=== PATIENT | female | born 1990 | race Caucasian/White ===

== ENCOUNTER 2017-01-04 15:19 | Inpatient (IN) ==
--- NOTE | 2017-01-04 10:55 | OB/GYN Progress Note ---
Date of Encounter: 01/04/17 Time of Encounter: 10:53 Objective - Vital Signs Vital Signs: Intake and Output 01/03/17 01/04/17 01/04/17 23:59 07:59 15:59 Other: Weight 102.7 kg Patient Weight 01/04/17 23:59 Weight 102.7 kg
--- NOTE | 2017-01-04 14:10 | OB/GYN History & Physical ---
Date of Encounter: 01/04/17 Time of Encounter: 14:04 Assessment and Plan (1) 38 weeks gestation of Current visit: Yes Status: Acute (2) Uterine contractions during Current visit: Yes Status: Acute Pt has made cervical change from 3-4cm. Admit to labor and delivery Nubain as desired May have epidural if continues to make cervical change. Anticipate History of Present Illness Chief complaint: Contractions HPI: Ms. Cook is a 26 year old female with complaints of contractions since 4am this morning. Reports good movement, denies vaginal bleeding or leaking of fluid. Pt states did have low fluid during 12/24 US shows KERWIN of 7 with small head measurement. Pt states she has a history of rapid labor. Labs: A+, Rubella Immune, GBS and serologies negative Past Med Surg Social Fam HX - Past Medical History Medical history: no medical history Psychiatric history: no psych history - Past Surgical History Surgical History: no surgical history - Social History Smoking Status: Former smoker Smokeless Tobacco Status: No Alcohol use: none Drug use: none - Family History Mother Hx Family Cardiac Disorders: Yes (HTN) Obstetrical History - Pregnancies : 3 Para: 2 Term: 2 : 0 Ab's: 0 Livin Medications and Allergies Vyf086/FA/Omega3/Dha/Fish Oil [ Gummies] 1 tab PO DAILY 01/04/17 [ History] Propranolol HCl [Innopran Xl] 1 tab PO DAILY 01/04/17 [History] Allergies No Known Allergies Allergy (Verified 01/04/17 10:51) Exam - Constitutional Constitutional: well developed, well nourished, no acute distress - Neck Neck exam: full ROM - Lungs Respiratory exam: CTAB - Cardiovascular Cardiovascular exam: RRR, +S1, +S2 - Abdomen Abdomen: Present: bowel sounds normal, gravid, non tender - Extremities Extremities exam: normal capillary refill, normal inspection - Vagina Vagina: Present: normal moisture - Cervix Dilation: 4 (BBOW) Effacement: 75 Station: -2 - Uterus Uterus exam: Present: normal size, normal contour - Adnexa Adnexa: bilateral: normal Results All other labs normal. - VTE Reasons for not Prescribing Prophylaxis: Treatment not Indicated - Low risk for VTE
--- NOTE | 2017-01-04 14:30 | Anesthesia Evaluation PreOp ---
Date of Encounter: 01/04/17 Time of Encounter: 14:28 - Past History Planned Operation: vaginal del, , Cardiac History: Denies any Significant Hx Pulmonary History: Denies Any Significant HX BOOTH CLEANER History: Other (chronic migraines, tx with propanolol.) Other Medical History: Other (chronic back pain, no radiculopathy.) Anesthesia History: No Prior Anesthetic Complications, Past Anesthesia ( previous epidural (not in time, didnt work, Hx of fast labor), no family Hx of problems) Alcohol Use: none Drug use: none Medications and Allergies Hex656/FA/Omega3/Dha/Fish Oil [ Gummies] 1 tab PO DAILY 01/04/17 [ History] Propranolol HCl [Innopran Xl] 1 tab PO DAILY 01/04/17 [History] Allergies No Known Allergies Allergy (Verified 01/04/17 10:51) Anesthesia Exam - HEENT Pupil (Motor): Pupils equal Mallampati: III Teeth: Normal Oral Opening: Greater than 3 - BOOTH CLEANER LOC: Oriented BOOTH CLEANER Motor: Normal RUE, Normal LUE, Normal RLE, Normal LLE, Normal Face BOOTH CLEANER Sensory: Normal: RUE, LUE, RLE, LLE, Face - Cardiac Rhythm: Regular Murmur: None - Pulmonary Breath Sounds: bilateral Clear Respiratory Effort: Symmetrical Anesthesia Assess/Plan ASA Score: 2 Modified [place] Scale for Level of Consciousness: Cooperative, oriented, and tranquil Anesthetic Plan: General, Regional Monitoring Plan: Standard Monitors Recovery Plan: PACU
[~2017-01-04 15:19] MED LIST: *HR* Nalbuphine 20 MG/ML AMPUL IVP PRN; Famotidine 20 MG/2 ML VIAL IVP PRN; Naloxone 0.4 MG/ML INJ IVP PRN; Ringers Solution, Lactated 1,000 ML IVC SCH
[2017-01-04] MEDS ORDERED: Oxytocin 20 units/ LR 1000 mL 20 UNIT/1,000 ML BAG IVC ONE (15:21)
[2017-01-04] MEDS ORDERED: Lidocaine 1% 20 ML MDV ONE (15:33)
[2017-01-04 15:42] LABS: Basophils % 0.3 %; Eosinophils # 0.1 K/mcL (0.0-0.6); Eosinophils % 0.5 %; Hematocrit 39.1 % (35.3-44.9); Hemoglobin 13.1 g/dL (11.5-15.4); Immature Granulocytes % 0.3 % (0-4); Lymphocytes # 1.7 K/mcL (0.6-4.6); Mean Corpuscular HGB Conc 33.5 g/dL (31.6-35.5); Mean Corpuscular Hemoglobin 31.2 pg (28.0-33.3); Mean Corpuscular Volume 93.1 fL (83.0-100.0); Mean Platelet Volume 12.4 fL (9.4-12.4); Monocytes # 0.5 K/mcL (0.0-1.3); Monocytes % 4.3 %; Neutrophils # 9.2 K/mcL (1.6-8.9); Platelet Count 212 K/mcL (140-400); Red Cell Distribution Width 14.4 % (11.5-14.5); Segmented Neutrophils % 79.6 %
--- NOTE | 2017-01-04 16:11 | OB/GYN Procedure Note ---
Delivery - Delivery Date: 01/04/17 Provider: Donna Cook Intrapartum events: meconium Delivery induction: none Delivery monitor: external FHT, external uterine Anesthesia: local Estimated Blood Loss: 200 - Infant (s) Infant A Delivery Date: 01/04/17 Infant Delivery Time: 15:27 Presentation: vertex Position: MARCELLE Route of delivery: Gender: Female Viability: Viable Pounds: 5 Ounces: 9 Weight Gram: 2510 kg at 1 minute: 8 at 5 mins: 9 Shoulder Dystocia: not encountered Placenta: spontaneous Cord: 3 umbilical vessels - Repair Episiotomy: none Laceration Description: Perineal - 2nd Degree - Complications Delivery complications: meconium - Disposition Mom disposition: stable in LDR [place] disposition: stable in LDR - Comments Comments: Pt progressed quickly to complete.SROM for meconium stained fluid. Maternal bearing down efforts to of liveborn girl. Vertex delivered MARCELLE, shoulders and body easily followed, no shoulder dystocia encountered. Nuchal encountered delivered through cord. Vigorous infant placed on maternal abdomen, Apgars 8, 9 Placenta delivered spontaneously, complete and intact with fundus firm, Pitocin per policy. Second-degree perineal laceration repaired in the normal fashion with 3-0 Vicryl. EBL 200, all sponge and needle counts correct
[2017-01-04] MEDS ORDERED: Lanolin 28 GM TUBE TP PRN (18:12)
[2017-01-04] MEDS ORDERED: Oxytocin 20 units/ LR 1000 mL 20 UNIT/1,000 ML BAG IVC SCH (18:12)
[2017-01-04] MEDS ORDERED: Benzocaine/Menthol 56 GM AEROSOL SPRAY TP PRN (18:12)
[2017-01-04] MEDS ORDERED: Acetaminophen 325 MG TABLET PO PRN (18:12)
[2017-01-04] MEDS: Ibuprofen 600 MG TABLET PO PRN (18:51)
[2017-01-05 06:03] LABS: Basophils % 0.3 %; Eosinophils # 0.1 K/mcL (0.0-0.6); Eosinophils % 0.8 %; Hematocrit 37.8 % (35.3-44.9); Hemoglobin 12.6 g/dL (11.5-15.4); Immature Granulocytes % 0.5 % (0-4); Lymphocytes # 2.2 K/mcL (0.6-4.6); Lymphocytes % 17.9 %; Mean Corpuscular HGB Conc 33.3 g/dL (31.6-35.5); Mean Corpuscular Hemoglobin 30.7 pg (28.0-33.3); Mean Platelet Volume 11.4 fL (9.4-12.4); Monocytes # 0.9 K/mcL (0.0-1.3); Monocytes % 7.3 %; Neutrophils # 8.8 K/mcL (1.6-8.9); Platelet Count 190 K/mcL (140-400); Red Blood Count 4.11 M/mcL (3.82-4.97); Red Cell Distribution Width 14.2 % (11.5-14.5); Segmented Neutrophils % 73.2 %
[2017-01-05 08:25] VITALS: BP 109/73
[2017-01-05] MEDS ORDERED: Prenatal Vit/FA 1 EACH TABLET PO SCH (09:00)
[2017-01-05] MEDS: Ibuprofen 600 MG TABLET PO PRN (09:49)
--- NOTE | 2017-01-05 10:05 | Discharge Summary ---
Date of Encounter: 01/05/17 Time of Encounter: 10:04 - Discharge Diagnosis (1) Status post vaginal delivery Priority: Primary Status: Acute Comments: patient doing well PPD#2, ok for discharge - Discharge Medications Home Medications: Uow684/FA/Omega3/Dha/Fish Oil [ Gummies] 1 tab PO DAILY 01/04/17 [ History] Propranolol HCl [Innopran Xl] 1 tab PO DAILY 01/04/17 [History] Allergies/Adverse Reactions: Allergies No Known Allergies Allergy (Verified 01/04/17 10:51) Data Procedures and tests throughout hospitalization: Laboratory Tests 01/04/17 01/05/17 14:25 05:42 WBC 11.6 H 12.0 H RBC 4.20 4.11 Hgb 13.1 12.6 Hct 39.1 37.8 MCV 93.1 92.0 MCH 31.2 30.7 MCHC 33.5 33.3 RDW 14.4 14.2 Plt Count 212 190 MPV 12.4 11.4 Immature Gran % 0.3 0.5 Seg Neutrophils % 79.6 73.2 Lymphocytes % 15.0 17.9 Monocytes % 4.3 7.3 Eosinophils % 0.5 0.8 Basophils % 0.3 0.3 Neutrophils # 9.2 H 8.8 Lymphocytes # 1.7 2.2 Monocytes # 0.5 0.9 Eosinophils # 0.1 0.1 Basophils # 0.0 0.0 Labs on day of discharge: Labs from last 24 hours 01/05/17 01/04/17 05:42 14:25 WBC 12.0 H 11.6 H RBC 4.11 4.20 Hgb 12.6 13.1 Hct 37.8 39.1 MCV 92.0 93.1 MCH 30.7 31.2 MCHC 33.3 33.5 RDW 14.2 14.4 Plt Count 190 212 MPV 11.4 12.4 Immature Gran % 0.5 0.3 Seg Neutrophils % 73.2 79.6 Lymphocytes % 17.9 15.0 Monocytes % 7.3 4.3 Eosinophils % 0.8 0.5 Basophils % 0.3 0.3 Neutrophils # 8.8 9.2 H Lymphocytes # 2.2 1.7 Monocytes # 0.9 0.5 Eosinophils # 0.1 0.1 Basophils # 0.0 0.0 Date of admission: 01/04/17 15:52 Primary care physician: Mohsen Garcias Consults: 01/04/17 18:12 Consult to Financial Services Auditor [CONS] Routine Comment: Vaginal delivery, consult needed - Patient Status Disposition: Home, Self-Care Condition: Good Functional capacity at discharge: independent ambulation - Discharge Instructions Follow Up With: Carlos Garcias DO [Primary Care Provider] - Hospital Course ZONING ADMINISTRATOR Time Attestation: Total time spent providing and/or coordinating discharge services: Exam - Constitutional Vitals: Temp Pulse Resp BP Pulse Ox 97.6 F 75 16 109/73 97 01/05/17 07:30 01/05/17 07:30 01/05/17 07:30 01/05/17 07:30 01/05/17 04:50 General appearance IM: A&O X 3 - Respiratory Respiratory exam: Present: CTAB - Cardiovascular Cardiovascular exam IM: Present: RRR - GI/Abdominal GI/Abdominal exam IM: normal bowel sounds - Neurological Exam Neurological exam: alert - VTE Reasons for not Prescribing Prophylaxis: Treatment not Indicated - Low risk for VTE
== END 2017-01-05 18:00 | disposition home or self-care (01) | DRG 560 ==
LOC: 1NENULAB → 1NENUOBS 18:08
PROVIDERS: ADMIT Obstetrics & Gynecology; ATTEND Obstetrics & Gynecology

== ENCOUNTER 2018-01-06 14:03 | Observation (INO) ==
[2018-01-06 15:05] LABS: Amphetamine Screen,Urine Negative ng/mL (Cutoff=1000); Barbiturate Screen,Urine Negative ng/mL (Cutoff=200); Benzodiazepines Screen,Urine Negative ng/mL (Cutoff=200); Cannabinoid Screen,Urine Negative ng/mL (Cutoff = 50); Cocaine Screen,Urine Negative ng/mL (Cutoff= 300); Opiate Screen,Urine Negative ng/mL (Cutoff=300); Phencyclidine Screen,Urine Negative ng/mL (Cutoff=25)
--- NOTE | 2018-01-06 18:27 | OB/GYN Progress Note ---
Date of Encounter: 01/06/18 Time of Encounter: 18:20 - Assessment and Plan (1) and not yet delivered in third trimester Current Visit: Yes Status: Acute (2) False labor after 37 weeks of gestation without delivery Current Visit: Yes Status: Acute Labor precautions given she will follow up in the office her back on labor and delivery if contractions are 5-7 minutes apart that she cannot walk or talk to (3) 38 weeks gestation of Current Visit: No Status: Acute Subjective - Subjective Interval history: Patient is a 27-year-old 4 para 3 at 38-4/7 weeks who presented today complaining of contractions every 7-10 minutes apart. Patient has a history of rapid labors when she gets to 4-5 cm, she lives approximately 45 minutes from the hospital was concerned so came in to be evaluated. On admission patient was taken to 3 cm was observed for couple hours and made no significant change we did assess the patient felt that she might be close to 3 cm her contractions were still very irregular and head was ballotable we had the patient ambulate for an hour then we placed a back on the monitor contractions remained approximately 5-10 minutes apart irregular and she had made no additional cervical change with the head still being ballotable patient was advised that because she is in the 38 weeks range we really cannot do anything to help her needs to be in the 39 week range for that patient will be discharged home with labor precautions she has an appointment in 2 days which she will keep. She denies any leaking of fluid and is still having good movement. Antepartum ROS: contractions Objective - Vital Signs Vital Signs: Intake and Output 01/06/18 01/06/18 01/06/18 07:59 15:59 23:59 Other: Weight 99.79 kg Patient Weight 01/06/18 23:59 Weight 99.79 kg - Exam FHR: category 1 FHR comments: heart tones 140s reactive contractions irregular every 5-7 minutes Abdomen: Present: normal appearance, soft, gravid Uterus: Present: normal, firm Cervical dilation: 3 Cervix effacement: 80 station: ballotable
== END 2018-01-06 18:30 | disposition home or self-care (01) ==
LOC: 1NENULAB
PROVIDERS: ADMIT Obstetrics & Gynecology; ATTEND Obstetrics & Gynecology

== ENCOUNTER 2018-01-10 23:29 | Inpatient (IN) ==
[2018-01-10 19:50] LABS: Amphetamine Screen,Urine Negative ng/mL (Cutoff=1000); Barbiturate Screen,Urine Negative ng/mL (Cutoff=200); Benzodiazepines Screen,Urine Negative ng/mL (Cutoff=200); Cannabinoid Screen,Urine Negative ng/mL (Cutoff = 50); Cocaine Screen,Urine Negative ng/mL (Cutoff= 300); Opiate Screen,Urine Negative ng/mL (Cutoff=300); Phencyclidine Screen,Urine Negative ng/mL (Cutoff=25)
--- NOTE | 2018-01-10 20:01 | OB/GYN History & Physical ---
Date of Encounter: 01/10/18 Time of Encounter: 19:58 Assessment and Plan (1) 39 weeks gestation of Current visit: Yes Status: Acute (2) Unstable lie Current visit: Yes Status: Acute Qualifiers: Fetus number: single or unspecified fetus Qualified Code(s): O32.0XX0 - Maternal care for unstable lie, not applicable or unspecified (3) Encounter for elective induction of labor Current visit: Yes Status: Acute Patient will be induced with Cytotec and plan is to anticipate vaginal delivery (4) and not yet delivered in third trimester Current visit: No Status: Acute History of Present Illness HPI: Ms. Cook is a 27 year old female 4 para 3 at 39 and one sevenths weeks who presented to labor and delivery complaining contractions every 3-5 minutes. She lives an hour from the hospital and states when she is to 4 cm she delivered within 3 hours they got concerned and came in. She has been 3 cm for the last week. Upon arrival to labor and delivery patient was not really vish when we originally examined her she was 4 cm and I felt what I thought was a foot with toes. We immediately got a ultrasound and noticed the infant was still vertex. We did reexamine the patient again this time it was noted that was had however its a compound presentation and the infant's hand is near the cervical os and fingers are present. Because the head is not engaged and ballotable it is an unstable lie and uncomfortable sending the patient home with this unstable lie and her history. Because she is over 39 weeks advise that we just keep her and induce her labor and had a controlled delivery with no complications. Patient does have hypertension but well-controlled on her propranolol. Patient is interested in a tubal ligation did advise that that would probably not be done until 6 weeks . Patient is a positive, GBS negative, rubella positive varicella positive Past Med Surg Social Fam HX - Past Medical History Source: patient, old records reviewed Medical history: asthma, hypertension, migraine Psychiatric history: no psych history - Past Surgical History Surgical History: no surgical history - Social History Smoking Status: Former smoker Smokeless Tobacco Status: No Alcohol use: none Drug use: none Occupational status: unemployed Current living situation: Home - Independent Activity Level: Independent ambulation Recent Out of Country Travel Within the Last 8 Weeks: No Exposure or Possible Exposure to Illness During Travel: No - Family History Mother Living Status: Still Living Hx Family Cardiac Disorders: Yes (HTN) Hx Family Respiratory Disorders: No Hx Family Cancer: No Hx Family GI Disorders: No Hx Family Genitourinary Disorders: No Hx Family Endocrine Disorder: No Hx Family Musculoskeletal Disorders: No Hx Family Neuromuscular Disorders: No Hx Family Neurologic Disorders: No Hx Family HEENT Disorders: No Hx Family Autoimmune Disorders: No Hx Family Reproductive Disorders: No Hx Family Psychosocial Disorders: No Hx Family Medical Disorders: No Obstetrical History - Pregnancies : 4 Para: 3 Term: 3 Livin Medications and Allergies Yqq600/FA/Omega3/Dha/Fish Oil [ Gummies] 1 tab PO DAILY 01/04/17 [ History] Propranolol HCl [Innopran Xl] 1 tab PO DAILY 01/04/17 [History] 3 Allergy/AdvReac Type Severity Reaction Status Date / Time No Known Allergies Allergy Verified 01/04/17 10:51 Review of System OB All systems PM: reviewed and no additional remarkable complaints except as stated Exam - Constitutional Constitutional: well developed, well nourished, no acute distress, average body habitus, mild distress - HEENT HEENT: EOMI, PERRL, Mucus Membranes Moist - Neck Neck exam: full ROM - Lungs Respiratory exam: CTAB - Cardiovascular Cardiovascular exam: RRR - Abdomen Abdomen: Present: bowel sounds normal, gravid ( heart tones 140s reactive occasional contractions seen vertex by bedside ultrasound) - Cervix Dilation: 4 Effacement: 80 Station: -3 (ballotable) Results All other labs normal. - VTE Reasons for not Prescribing Prophylaxis: Treatment not Indicated - Low risk for VTE
--- NOTE | 2018-01-10 21:51 | Anesthesia Evaluation PreOp ---
Date of Encounter: 01/10/18 Time of Encounter: 21:49 - Past History Planned Operation: mahesh Cardiac History: HTN Pulmonary History: Former smoker (quit 2 years) REGISTERED NURSES History: Denies Any Significant HX Other Medical History: GERD Anesthesia History: No Prior Anesthetic Complications, Past Anesthesia (mahesh) : Yes Test: Positive Alcohol Use: none Drug use: none Medications and Allergies Ifn447/FA/Omega3/Dha/Fish Oil [ Gummies] 1 tab PO DAILY 01/04/17 [ History] Propranolol HCl [Innopran Xl] 1 tab PO DAILY 01/04/17 [History] 3 Allergy/AdvReac Type Severity Reaction Status Date / Time Sulfa (Sulfonamide Allergy Vomiting Verified 01/10/18 21:10 Antibiotics) - Meds/Allergy Pre-op Review Medications Reviewed: Yes Allergies Reviewed: Yes Beta Blockers on Current Med List: Yes If Beta Blockers taken, Date/Time (Last Dose taken): propanalol 01/09 2300 Anesthesia Exam see nsg note Height: 5'2" Weight: 101 kg NPO (# of Hours): 4 Pain Scale: 3 Pain Scale Used: Numeric (1 - 10) - HEENT Pupil (Motor): Pupils equal Mallampati: II Teeth: Poor dentition Oral Opening: Greater than 3 - REGISTERED NURSES LOC: Oriented REGISTERED NURSES Motor: Normal RUE, Normal LUE, Normal RLE, Normal LLE, Normal Face REGISTERED NURSES Sensory: Normal: RUE, LUE, RLE, LLE, Face - Cardiac Rhythm: Regular Murmur: None - Pulmonary Respiratory Effort: Symmetrical Anesthesia Assess/Plan ASA Score: 2 Modified [place] Scale for Level of Consciousness: Cooperative, oriented, and tranquil Anesthetic Plan: Regional Autologous Blood: No Monitoring Plan: Standard Monitors Recovery Plan: Other (risks discussed questions answered, consented lab pending at time of eval)
[2018-01-10 22:05] LABS: Basophils % 0.2 %; Eosinophils # 0.1 K/mcL (0.0-0.6); Eosinophils % 0.8 %; Hemoglobin 12.1 g/dL (11.5-15.4); Immature Granulocytes % 0.4 % (0-4); Lymphocytes # 1.9 K/mcL (0.6-4.6); Lymphocytes % 22.2 %; Mean Corpuscular HGB Conc 33.6 g/dL (31.6-35.5); Mean Corpuscular Hemoglobin 30.3 pg (28.0-33.3); Mean Corpuscular Volume 90.2 fL (83.0-100.0); Mean Platelet Volume 11.6 fL (9.4-12.4); Monocytes # 0.6 K/mcL (0.0-1.3); Monocytes % 6.6 %; Neutrophils # 5.8 K/mcL (1.6-8.9); Platelet Count 196 K/mcL (140-400); Red Blood Count 3.99 M/mcL (3.82-4.97); Red Cell Distribution Width 13.5 % (11.5-14.5); Segmented Neutrophils % 69.8 %
[~2018-01-10 23:29] MED LIST changes: -*HR* Nalbuphine 20 MG/ML AMPUL IVP PRN; +Lidocaine 1% 20 ML MDV INFILT PRN; +Ondansetron 4 MG/2 ML VIAL IVP PRN; +Oxytocin 20 units/ LR 1000 mL 20 UNIT/1,000 ML BAG IVC ONE; +Oxytocin 20 units/ LR 1000 mL 20 UNIT/1,000 ML BAG IVC SCH; +miSOPROStol 100 MCG TABLET PO PRN
--- NOTE | 2018-01-11 00:24 | OB Labor Progress Note ---
Date of Encounter: 01/11/18 Time of Encounter: 00:22 Labor Progress Note - Subjective Subjective: Patient resting in bed. Discussed POC with patient. Patient denies any questions or concerns. - Cervix Cervix: 6/80/-1 - Heart Tones Heart Tones: 135 bpm moderate variability occasional variable noted. - [place]: 3-4 min apart - Interventions Interventions: SVE, AROM moderate amount of clear fluid. IUPC placed without difficulty. Patient tolerated well. - Plan Plan: Continue labor management Patient repositioned Epidural for pain management if patient desires anticipate
--- NOTE | 2018-01-11 01:26 | OB/GYN Procedure Note ---
Delivery - Delivery Date: 01/11/18 Provider: Carlos Garcias Intrapartum events: none Delivery induction: none, oxytocin Delivery augmentation: rupture of membranes Delivery monitor: external FHT, external uterine, internal uterine Anesthesia: local Quantitated Blood Loss: 50 - (s) A Delivery Date: 01/11/18 Delivery Time: 00:45 Presentation: vertex Position: MARCELLE Route of delivery: Gender: Female Viability: Viable Pounds: 6 Ounces: 8 Weight Gram: 2.96 kg at 1 minute: 8 at 5 mins: 9 Shoulder Dystocia: not encountered Specimens collected: cord blood Placenta: spontaneous Cord: nuchal cord (X2), nuchal reduced - Repair Episiotomy: none Laceration Description: Perineal - 2nd Degree - Complications Delivery complications: none Delivery comments: Patient is a 27-year-old 4 para 3 at 39-1/7 weeks who presented to labor and delivery with complaint of contractions. Patient was having occasional contractions however patient was 4 cm with an unstable lie. Patient' s was ballotable but we could feel the 's hand but the head and patient has a history of going rapidly. Because of this unstable lie ultrasound states that the patient go home tissue was to rupture at home and we will just go ahead and deliver her. Patient was started on Pitocin, at approximate 6 cm patient was artificially ruptured and internal pressure catheter was placed. Patient progressed rapidly from this point within minutes patient was 8 cm then complete pushed once delivering a viable female in left occiput anterior presentation at 0045. Patient was noted to have a nuchal cord 2 loose and reduced baby was placed on the maternal abdomen where she was bulb suctioned. Apgars were 8 at 1 minute and 9 at 5 minutes, weighed 6 lbs. 8 oz. Placenta was then delivered spontaneously 3 vessel cord, spud driller Dr. Garcias, anesthesia local, estimated blood loss 50 mL. She had a second-degree perineal laceration repaired with 3-0 Monocryl in usual fashion. Cervix and vagina was visualized intact. Patient tolerated the delivery well she will be observed 2 hours before being taken the floor. Patient had signed tubal ligation papers wants to wait to 6 weeks and have it done outpatient. - Disposition Mom disposition: stable in LDR disposition: stable in LDR
[2018-01-11] MEDS ORDERED: EPHEDrine 50 MG/ML VIAL ONE (01:43)
[2018-01-11] MEDS ORDERED: Ibuprofen 600 MG TABLET PO PRN (01:47)
[2018-01-11] MEDS ORDERED: Oxytocin 20 units/ LR 1000 mL 20 UNIT/1,000 ML BAG IVC SCH (03:00)
[2018-01-11] MEDS ORDERED: Measles/Mumps/Rubella Vacc 0.5 ML VIAL SQ PRN (03:00)
[2018-01-11] MEDS: Ibuprofen 600 MG TABLET PO PRN ×2 (04:10→16:13)
[2018-01-11 06:15] LABS: Basophils % 0.2 %; Eosinophils % 0.2 %; Hematocrit 35.8 % (35.3-44.9); Hemoglobin 11.8 g/dL (11.5-15.4); Immature Granulocytes % 0.3 % (0-4); Lymphocytes # 1.2 K/mcL (0.6-4.6); Lymphocytes % 9.3 %; Mean Corpuscular Hemoglobin 29.4 pg (28.0-33.3); Mean Corpuscular Volume 89.3 fL (83.0-100.0); Mean Platelet Volume 11.3 fL (9.4-12.4); Monocytes # 0.6 K/mcL (0.0-1.3); Monocytes % 4.7 %; Neutrophils # 10.8 K/mcL (1.6-8.9); Platelet Count 196 K/mcL (140-400); Red Blood Count 4.01 M/mcL (3.82-4.97); Red Cell Distribution Width 13.6 % (11.5-14.5); Segmented Neutrophils % 85.3 %
[2018-01-11] MEDS: Acetaminophen 325 MG TABLET PO PRN ×2 (06:17→20:05)
[2018-01-11] MEDS: Prenatal Vit/FA 1 EACH TABLET PO SCH (08:16)
[2018-01-11] MEDS ORDERED: Propranolol LA (24 HR) 60 MG CAP.SA.24H PO SCH ×2 (09:00→21:00)
[2018-01-12] MEDS: Ibuprofen 600 MG TABLET PO PRN (06:44)
--- NOTE | 2018-01-12 08:08 | Discharge Summary ---
Date of Encounter: 01/12/18 Time of Encounter: 08:06 - Discharge Diagnosis (1) 39 weeks gestation of Priority: Secondary Status: Acute (2) Unstable lie Priority: Secondary Status: Acute Qualifiers: Fetus number: single or unspecified fetus Qualified Code(s): O32.0XX0 - Maternal care for unstable lie, not applicable or unspecified (3) Encounter for elective induction of labor Priority: Secondary Status: Acute (4) and not yet delivered in third trimester Priority: Secondary Status: Acute (5) Status post normal vaginal delivery Priority: Primary Status: Acute - Discharge Medications Prescriptions: Ibuprofen [Motrin] 600 mg PO Q6HR PRN #30 tablet PRN Reason: Cramping Home Medications: Noc369/FA/Omega3/Dha/Fish Oil [ Gummies] 1 tab PO DAILY 01/04/17 [ History] Propranolol HCl [Innopran Xl] 120 mg PO DAILY 01/04/17 [History] Ibuprofen [Motrin] 600 mg PO Q6HR PRN #30 tablet 01/12/18 [Rx] Allergies/Adverse Reactions: 3 Allergy/AdvReac Type Severity Reaction Status Date / Time Sulfa (Sulfonamide Allergy Vomiting Verified 01/10/18 21:10 Antibiotics) Data Procedures and tests throughout hospitalization: Laboratory Tests 01/10/18 01/10/18 01/11/18 19:13 21:39 06:00 WBC 8.4 12.6 H RBC 3.99 4.01 Hgb 12.1 11.8 Hct 36.0 35.8 MCV 90.2 89.3 MCH 30.3 29.4 MCHC 33.6 33.0 RDW 13.5 13.6 Plt Count 196 196 MPV 11.6 11.3 Immature Gran % 0.4 0.3 Seg Neutrophils % 69.8 85.3 Lymphocytes % 22.2 9.3 Monocytes % 6.6 4.7 Eosinophils % 0.8 0.2 Basophils % 0.2 0.2 Neutrophils # 5.8 10.8 H Lymphocytes # 1.9 1.2 Monocytes # 0.6 0.6 Eosinophils # 0.1 0.0 Basophils # 0.0 0.0 Urine Opiates Screen Negative Ur Barbiturates Screen Negative Ur Phencyclidine Scrn Negative Ur Amphetamines Screen Negative U Benzodiazepines Scrn Negative Urine Cocaine Screen Negative U Marijuana (THC) Screen Negative Ur Drug Screen Interp See Below Date of admission: 01/10/18 23:29 Consults: 01/11/18 03:00 Consult to Assistant Tennis Coach [CONS] Routine Comment: Vaginal delivery, consult needed Discharging clinician: Carlos Garcias Anticipated date of discharge: 01/12/18 - Patient Status Disposition: Home, Self-Care Condition: Good Functional capacity at discharge: independent ambulation Overall status at discharge: patient is back to baseline - Discharge Instructions - Diet and Activity Activity: increase activity as tolerated Diet: advance to your usual diet Hospital Course Procedures: Vaginal delivery Reason for admission: other (Term , unstable lie, advanced cervical dilatation) Delivery: Episiotomy: none Laceration: 2nd degree Other procedures: none complications: none Discharge diagnosis: IUP at term delivered baby: female Hospital course: Patient is a 27-year-old 4 para 3 at 39+ weeks who presented with complaint of contractions when she was examined patient was noted to be 4 cm but unstable lie hand was above the head and the head was ballotable patient has a history of rapid deliveries and is now from the hospital because of the unstable lie was recommend we just keep her and have the baby patient did have a normal spontaneous vaginal delivery without any complications she did have a second-degree laceration repaired without any complications patient' s hospital course was unremarkable she was discharged home on hospital day #1 with prescription for Motrin 600 mg and she will follow up in the office in 4 weeks. Condition at the time of discharge was stable Time Attestation: Total time spent providing and/or coordinating discharge services: Exam - Constitutional Vitals: Temp Pulse Resp BP Pulse Ox 98.1 F 82 16 106/67 96 01/11/18 20:05 01/11/18 20:05 01/11/18 20:05 01/12/18 03:48 01/11/18 20:05 General appearance IM: A&O X 3 - Respiratory Respiratory exam: Present: CTAB - Cardiovascular Cardiovascular exam IM: Present: RRR - GI/Abdominal GI/Abdominal exam IM: normal bowel sounds - Rectal Rectal exam: deferred - Uterus Position: At Umbilicus
[2018-01-12 09:19] VITALS: BP 106/72
[2018-01-12] MEDS: Prenatal Vit/FA 1 EACH TABLET PO SCH (10:05)
== END 2018-01-12 12:40 | disposition home or self-care (01) | DRG 560 ==
LOC: 1NENULAB → 1NENUOBS 01-11 02:59
PROVIDERS: ADMIT Obstetrics & Gynecology; ATTEND Obstetrics & Gynecology